=== PATIENT | male | born 1940 | race African-American/Black ===

== ENCOUNTER 2021-11-30 11:01 | Emergency (ER) | payer MEDICARE ==
[2021-11-30] MEDS ORDERED: TETANUS,DIPH,PERTUSS(ACELL) VACCINE 0.5 ML SYRINGE IM ONE (12:21)
[2021-11-30] MEDS ORDERED: SODIUM CHLORIDE 0.9% 250ML 250 ML IV ONE (12:22)
[2021-11-30] MEDS ORDERED: MORPHINE 4 MG/1 ML INJ IV ONE ×3 (12:22→19:10)
--- NOTE | 2021-11-30 12:22 | Emergency Department Report ---
ED General Adult HPI - General Chief complaint: Fall Stated complaint: LEFT HIP PAIN Time Seen by Provider: 11/30/21 12:14 Source: patient, family, EMS (Verbal report received from emergency medical services. EMS documentation not available at time of chart dictation ), RN notes reviewed Mode of arrival: Stretcher Limitations: Language Barrier, Physical Limitation - History of Present Illness Initial comments: The patient was evaluated in the emergency department for symptoms described in the history of present illness. He/she was evaluated in the context of the global COVID-19 pandemic, which necessitated consideration that the patient might be at risk for infection with the virus that causes COVID-19. Institutional protocols and algorithms that pertain to the evaluation of patients at risk for COVID-19 are in a state of rapid change based on information released by regulatory bodies including the CDC and federal and state organizations. These policies and algorithms were followed during the patient's care in the emergency department. Please note that these policies, procedures and recommendations changed on a rapid basis. This is an 81-year-old gentleman who is COVID-19 vaccinated with 2 boosters, who presents to the department today with a complaint of feeling dizzy, lightheaded, fall, and left hip pain. He is accompanied by his family member who agrees to translate. The patient describes no antecedent pain. After the fall, he has a mild headache, neck aching, and severe left-sided hip pain. Denies cough, loss of taste and smell, fever, chest pain, abdominal pain, new/different shortness of breath, and extremity weakness and numbness. Family denies travel, surgery, immobilization, leg pain, leg swelling, DVT and pulmonary embolism risk factors. -: Sudden Location: left, lower extremity Consistency: constant Improves with: rest Worsens with: movement - Related Data Allergies Allergy/AdvReac Type Severity Reaction Status Date / Time No Known Allergies Allergy Verified 11/30/21 11:05 ED Review of Systems ROS: Stated complaint: LEFT HIP PAIN Other details as noted in HPI Comment: per family Constitutional: denies: fever Eyes: denies: eye discharge ENT: denies: epistaxis Respiratory: denies: cough Cardiovascular: denies: chest pain Genitourinary: denies: dysuria Musculoskeletal: arthralgia, myalgia Neurological: weakness (Generalized weakness) ED Physical Exam - General Limitations: Physical Limitation General appearance: alert, in no apparent distress - Head Head exam: Present: normocephalic - Eye Eye exam: Present: normal appearance, EOMI. Absent: nystagmus - ENT ENT exam: Present: normal exam, normal orophraynx, mucous membranes moist, normal external ear exam - Neck Neck exam: Present: normal inspection, full ROM. Absent: tenderness, meningismus - Respiratory Respiratory exam: Present: normal lung sounds bilaterally. Absent: respiratory distress, rhonchi, stridor, decreased breath sounds - Cardiovascular Cardiovascular Exam: Present: regular rate, normal rhythm, normal heart sounds. Absent: bradycardia, systolic murmur, diastolic murmur, rubs, gallop - GI/Abdominal GI/Abdominal exam: Present: soft. Absent: distended, tenderness, guarding, rebound, rigid, pulsatile mass - Rectal Rectal exam: Present: deferred - Extremities Exam Extremities exam: Present: normal inspection, full ROM (Bilateral upper extremities. Right lower extremity.), other (2+ pulses noted in the bilateral upper and lower extremities. The left hip is tender. The left proximal femur is tender. 2+ femoral pulses noted bilaterally. 2+ dorsalis pedis pulses noted bilaterally). Absent: calf tenderness - Back Exam Back exam: Present: normal inspection, paraspinal tenderness. Absent: tenderness, CVA tenderness (R), CVA tenderness (L), vertebral tenderness - Neurological Exam Neurological exam: Present: alert (5/5 strength dorsal and plantar flexors in the foot.), other (There is no facial droop. The tongue is midline. EOMI. 5/5 strength in 4 extremities. Sensation is intact to light touch in 4 extremities) - Psychiatric Psychiatric exam: Present: normal affect, normal mood - Skin Skin exam: Present: warm, dry, intact, normal color. Absent: rash ED Course Vital Signs 11/30/21 11/30/21 11/30/21 11:03 14:35 14:45 Temperature 98.1 F Pulse Rate 68 71 71 Respiratory 18 15 16 Rate Blood Pressure 154/77 Blood Pressure 170/90 [Left] O2 Sat by Pulse 98 98 Oximetry 11/30/21 15:01 Temperature Pulse Rate 74 Respiratory 14 Rate Blood Pressure 162/83 Blood Pressure [Left] O2 Sat by Pulse 97 Oximetry - Reevaluation(s) Reevaluation #1: 11/30/21 14:52 Differential diagnosis, including but not limited to: Orthostasis, vagal event, closed head injury, cervical spine injury, pelvic bone fracture, pneumonia, UTI, dehydration, electrolyte derangement, thyroid derangement, acute coronary syndrome, structural cardiac disease Assessment and plan: 81-year-old gentleman who is clinically sober, with a GCS of 15, who is not currently tachycardic, tachypneic or hypoxic, who denies DVT and pulmonary embolism risk factors, who is neurologically intact, presenting to the department today with a complaint of lightheadedness, preceding fall. He is found to have a number of orthopedic injuries, including left iliac crest fracture, left pubic ramus fracture. He is also found to have suggestion of acetabulum fracture. Placed patient on life skills coordinator. Obtain appropriate laboratory studies, urinalysis. Because of advanced age, CT scan of the brain, and cervical spine are obtained, which showed no fracture or dislocation. CT scan of the pelvis demonstrates multiple orthopedic fractures. Patient continues to have pain after initial morphine dose. Order additional morphine for pain. Ordered long posterior extremity splints. Laboratory studies pending. Do not have orthopedics on-call for the emergency room or hospital today. Have reached out to [facility] to discuss with their orthopedic physician on-call, and ideally admit patient to medical service with orthopedics to follow in consultation. Discussed this with family member at the bedside, who is agreeable to the plan of care. Have also requested medications be reconciled. 11/30/21 15:45 Discussed the patient's history, physical, imaging studies with orthopedic surgeon on-call for [facility] Dr Rocio Massey. He advises transfer to a trauma center, for acetabular fracture. The patient's history, physical, imaging studies are presented to orthopedic traumatologist, Dr. Ardon, at [facility], who will accept the patient as an ER to ER transfer. I discussed this with the patient's granddaughter at the bedside. She is agreeable to the plan of care. She articulated understanding. Home medications include colchicine, Flomax, carvedilol, Carafate, lisinopril. 11/30/21 17:51 Family has requested that I discussed the patient's care with family friend/physician, Dr. Bernardino HORTA, at [facility] They have given consent for the details of the patient's care to be discussed with this orthopedist. I discussed the patient's history, physical, imaging studies, and management rationale with Dr Horta He is in agreement with the plan of care, and will convey to family. ED Medical Decision Making - Lab Data Result diagrams: 11/30/21 14:19 11/30/21 14:19 Vital Signs 11/30/21 11:03 Temperature 98.1 F Pulse Rate 68 Respiratory 18 Rate Blood Pressure 170/90 [Left] O2 Sat by Pulse 98 Oximetry Lab Results 11/30/21 Range/Units 14:19 WBC 9.7 (4.5-11.0) K/mm3 RBC 3.82 (3.65-5.03) M/mm3 Hgb 12.6 (11.8-15.2) gm/dl Hct 37.6 (35.5-45.6) % MCV 99 H (84-94) fl MCH 33 H (28-32) pg MCHC 33 (32-34) % RDW 14.7 (13.2-15.2) % Plt Count 98 L (140-440) K/mm3 Lymph % (Auto) 18.2 (13.4-35.0) % [place] % (Auto) 8.8 H (0.0-7.3) % Eos % (Auto) 2.7 (0.0-4.3) % Baso % (Auto) 0.3 (0.0-1.8) % Lymph # (Auto) 1.8 (1.2-5.4) K/mm3 [place] # (Auto) 0.9 H (0.0-0.8) K/mm3 Eos # (Auto) 0.3 (0.0-0.4) K/mm3 Baso # (Auto) 0.0 (0.0-0.1) K/mm3 Seg Neutrophils % 70.0 (40.0-70.0) % Seg Neutrophils # 6.8 (1.8-7.7) K/mm3 Lab Results 11/30/21 11/30/21 11/30/21 Range/Units 14:19 14:19 14:19 WBC 9.7 (4.5-11.0) K/mm3 RBC 3.82 (3.65-5.03) M/mm3 Hgb 12.6 (11.8-15.2) gm/dl Hct 37.6 (35.5-45.6) % MCV 99 H (84-94) fl MCH 33 H (28-32) pg MCHC 33 (32-34) % RDW 14.7 (13.2-15.2) % Plt Count 98 L (140-440) K/mm3 Lymph % (Auto) 18.2 (13.4-35.0) % [place] % (Auto) 8.8 H (0.0-7.3) % Eos % (Auto) 2.7 (0.0-4.3) % Baso % (Auto) 0.3 (0.0-1.8) % Lymph # (Auto) 1.8 (1.2-5.4) K/mm3 [place] # (Auto) 0.9 H (0.0-0.8) K/mm3 Eos # (Auto) 0.3 (0.0-0.4) K/mm3 Baso # (Auto) 0.0 (0.0-0.1) K/mm3 Seg Neutrophils % 70.0 (40.0-70.0) % Seg Neutrophils # 6.8 (1.8-7.7) K/mm3 PT 16.3 H (12.2-14.9) Sec. INR 1.17 H (0.87-1.13) Sodium 140 (137-145) mmol/L Potassium 4.2 (3.6-5.0) mmol/L Chloride 104.5 (98-107) mmol/L Carbon Dioxide 23 (22-30) mmol/L Anion Gap 17 mmol/L BUN 19 (9-20) mg/dL Creatinine 1.0 (0.8-1.3) mg/dL Estimated GFR > 60 ml/min BUN/Creatinine Ratio 19 % Glucose 126 H (75-100) mg/dL Calcium 9.4 (8.4-10.2) mg/dL Phosphorus 3.60 (2.5-4.5) mg/dL Magnesium 1.70 (1.7-2.3) mg/dL Total Bilirubin 0.70 (0.1-1.2) mg/dL AST 50 H (5-40) units/L ALT 26 (7-56) units/L Alkaline Phosphatase 144 H (35-129) units/L Total Creatine Kinase 111 (55-170) units/L Troponin T < 0.010 (0.00-0.029) ng/mL Total Protein 7.4 (6.3-8.2) g/dL Albumin 3.6 L (3.9-5) g/dL Albumin/Globulin Ratio 0.9 % TSH (0.270-4.200) mlU/mL Urine Bilirubin (Negative) 11/30/21 11/30/21 Range/Units 14:19 14:20 WBC (4.5-11.0) K/mm3 RBC (3.65-5.03) M/mm3 Hgb (11.8-15.2) gm/dl Hct (35.5-45.6) % MCV (84-94) fl MCH (28-32) pg MCHC (32-34) % RDW (13.2-15.2) % Plt Count (140-440) K/mm3 Lymph % (Auto) (13.4-35.0) % [place] % (Auto) (0.0-7.3) % Eos % (Auto) (0.0-4.3) % Baso % (Auto) (0.0-1.8) % Lymph # (Auto) (1.2-5.4) K/mm3 [place] # (Auto) (0.0-0.8) K/mm3 Eos # (Auto) (0.0-0.4) K/mm3 Baso # (Auto) (0.0-0.1) K/mm3 Seg Neutrophils % (40.0-70.0) % Seg Neutrophils # (1.8-7.7) K/mm3 PT (12.2-14.9) Sec. INR (0.87-1.13) Sodium (137-145) mmol/L Potassium (3.6-5.0) mmol/L Chloride (98-107) mmol/L Carbon Dioxide (22-30) mmol/L Anion Gap mmol/L BUN (9-20) mg/dL Creatinine (0.8-1.3) mg/dL Estimated GFR ml/min BUN/Creatinine Ratio % Glucose (75-100) mg/dL Calcium (8.4-10.2) mg/dL Phosphorus (2.5-4.5) mg/dL Magnesium (1.7-2.3) mg/dL Total Bilirubin (0.1-1.2) mg/dL AST (5-40) units/L ALT (7-56) units/L Alkaline Phosphatase (35-129) units/L Total Creatine Kinase (55-170) units/L Troponin T (0.00-0.029) ng/mL Total Protein (6.3-8.2) g/dL Albumin (3.9-5) g/dL Albumin/Globulin Ratio % TSH 3.120 (0.270-4.200) mlU/mL Urine Bilirubin Neg (Negative) - EKG Data -: EKG Interpreted by Hi EKG shows normal: sinus rhythm Rate: normal - EKG Data When compared to previous EKG there are: previous EKG unavailable 11/30/21 14:45 The EKG is interpreted at 12: 34 This is a sinus rhythm, with a rate of 67 bpm. Left axis deviation, left anterior fascicular block, right bundle branch block, QTC 4 5 8 ms, and left ventricular hypertrophy. Abnormal EKG. Not a STEMI peer - Radiology Data Radiology results: pending, report reviewed, image reviewed Addendum: Additional area of irregularity seen in the left superior pubic ramus extending towards the acetabulum centrally and anteriorly suggesting superior pubic rami fracture/acetabular fracture. Signer Name: Chang Mckeon MD Signed: 11/30/2021 1:03 PM Workstation Name: [id number] CT pelvis wo con INDICATION / CLINICAL INFORMATION: fall left hip pain. TECHNIQUE: Axial, coronal and sagittal images All CT scans at this location are performed using CT dose reduction for ALARA by means of automated exposure control. COMPARISON: None available. FINDINGS: There is a displaced fracture which is comminuted involving the left iliac bone which extends to the superior aspect of the SI joint on the left. This extends into the iliac crest superiorly as well. Discogenic degenerative changes seen at L4-5 and L5-S1. Mild irregularity within the L4 vertebral body superior endplate. No significant loss of vertebral body height at L4. Left hip arthroplasty is noted. There is a fracture with displacement involving the left inferior pubic ramus with greater than one shaft width displacement. 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 Visualized sacrum appears intact. 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 IMPRESSION: 1. Comminuted displaced fracture of the left iliac bone extending to the iliac crest posterior superiorly. 2. Advanced degenerative change in lower lumbar spine. Mild irregularity is endplate of L4 could represent subtle superior endplate and vertebral body fracture. No significant loss of vertebral body height 3. Left inferior pubic rami fracture with displacement 4. Left hip arthroplasty appears satisfactory in position. 5. Infrarenal abdominal aortic aneurysm. 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 Questionable mild irregularity within the sacrum and coccyx on sagittal images 36 and 37 which could represent subtle fracture of the coccyx. Signer Name: Chang Mckeon MD Signed: 11/30/2021 12:48 PM Workstation Name: [employer] CT HEAD WITHOUT CONTRAST INDICATION / CLINICAL INFORMATION: Weakness. TECHNIQUE: All CT scans at this location are performed using CT dose reduction for ALARA by means of automated exposure control. COMPARISON: None available. FINDINGS: There is no acute intracranial hemorrhage. Ventricles are normal in size without midline shift or mass effect there are scattered areas of low- attenuation in the periventricular and central white matter suggesting nonspecific white matter change. Visualized sella appears normal. ADDITIONAL FINDINGS: None. IMPRESSION: 1. No acute intracranial hemorrhage. Periventricular and central white matter areas of low-attenuation suggesting small vessel disease. Given patient's symptoms and concern for ischemic change MRI with diffusion is recommended for further evaluation for ischemia. Signer Name: Chang Mckeon MD Signed: 11/30/2021 12:37 PM Workstation Name: [employer] CT cervical spine wo con INDICATION / CLINICAL INFORMATION: Weakness. TECHNIQUE: Axial, coronal and sagittal images All CT scans at this location are performed using CT dose reduction for ALARA by means of automated exposure control. COMPARISON: None available. FINDINGS: Straightening of normal cervical spine curvature. Occipital horns appear normal. Odontoid appears intact. Discogenic degenerative changes seen throughout spine with endplate changes throughout. Anterior posterior disc osteophytes throughout. Facets are well aligned throughout. Extensive atherosclerotic change throughout the aorta and carotid vessels chronic changes in the lung apices with scarring and emphysematous change. IMPRESSION: 1. Advanced discogenic degenerative changes seen throughout cervical spine. No prevertebral soft tissue swelling 2. Atherosclerotic calcification throughout the aorta and carotid vessels. Signer Name: Chang Mckeon MD Signed: 11/30/2021 12:44 PM Workstation Name: [id number] Left femur 4 views INDICATION: Fall FINDINGS: Left femoral arthroplasty is satisfactory position. Displaced left inferior pubic rami fracture. There is abnormality within the iliopectineal line suggesting fracture deformity within the left iliac bone. This appears to extend into the region of the acetabulum. Impression: Multiple fractures and left hip with fracture through the left superior pubic ramus extending into the region of the acetabulum. Left inferior pubic ramus and iliac bone Portable chest INDICATION: Fall FINDINGS: Increased pulmonary vascularity. Hyperexpansion of the lungs. No large pneumothorax is seen Pelvis one view INDICATION: Injury FINDINGS: Fractures of the left iliac bone including the iliac crest. Fracture the left inferior pubic ramus. Fractures of the iliopectineal line extending towards acetabulum. Signer Name: Chang Mckeon MD Signed: 11/30/2021 12:55 PM Workstation Name: [id number] Critical Care Time: Yes Critical care time in (mins) excluding proc time.: 35 Critical care attestation.: If time is entered above; I have spent that time in minutes in the direct care of this critically ill patient, excluding procedure time. Critical Care Time: Critical care time multiple bedside reevaluations, interpretation of laboratory studies, radiology studies, multiple discussions with multiple consulting services, including general orthopedics, orthopedic traumatologist, and discussion with family member. This does not include procedure time. ED Disposition Clinical Impression: Fall, Closed head injury, Near syncope, Fracture of left superior pubic ramus, Fracture of left iliac crest, Acetabulum fracture, left Disposition: 02 SHORT TERM HOSPITAL Is pt being admited?: No Does the pt Need Aspirin: No Condition: Good
--- NOTE | 2021-11-30 13:41 | Cat Scan Report ---
CT HEAD WITHOUT CONTRAST INDICATION / CLINICAL INFORMATION: Weakness. TECHNIQUE: All CT scans at this location are performed using CT dose reduction for ALARA by means of automated e xposure control. COMPARISON: None available. FINDINGS: There is no acute intracranial hemorrhage. Ventricles are normal in size without midline shift or mas s effect there are scattered areas of low-attenuation in the periventricular and central white matter suggesting nonspecific white matter change. Visualized sella appears normal. ADDITIONAL FINDINGS: None. IMPRESSION: 1. No acute intracranial hemorrhage. Periventricular and central white matter areas of low-attenuatio n suggesting small vessel disease. Given patient's symptoms and concern for ischemic change MRI with diffusion is recommended for further evaluation for ischemia. Signer Name: Chang Mckeon MD Signed: 11/30/2021 1:37 PM Workstation Name: [id number]
--- NOTE | 2021-11-30 13:48 | Cat Scan Report ---
CT cervical spine wo con INDICATION / CLINICAL INFORMATION: Weakness. TECHNIQUE: Axial, coronal and sagittal images All CT scans at this location are performed using CT dose reductio n for ALARA by means of automated exposure control. COMPARISON: None available. FINDINGS: Straightening of normal cervical spine curvature. Occipital horns appear normal. Odontoid appears int act. Discogenic degenerative changes seen throughout spine with endplate changes throughout. Anterior posterior disc osteophytes throughout. Facets are well aligned throughout. Extensive atherosclerotic change throughout the aorta and carotid vessels chronic changes in the lung apices with scarring and emphysematous change. IMPRESSION: 1. Advanced discogenic degenerative changes seen throughout cervical spine. No prevertebral soft tiss ue swelling 2. Atherosclerotic calcification throughout the aorta and carotid vessels. Signer Name: Chang Mckeon MD Signed: 11/30/2021 1:44 PM Workstation Name: [id number]
--- NOTE | 2021-11-30 13:52 | Cat Scan Report ---
CT pelvis wo con INDICATION / CLINICAL INFORMATION: fall left hip pain. TECHNIQUE: Axial, coronal and sagittal images All CT scans at this location are performed using CT dose reductio n for ALARA by means of automated exposure control. COMPARISON: None available. FINDINGS: There is a displaced fracture which is comminuted involving the left iliac bone which extends to the superior aspect of the SI joint on the left. This extends into the iliac crest superiorly as well. Di scogenic degenerative changes seen at L4-5 and L5-S1. Mild irregularity within the L4 vertebral body superior endplate. No significant loss of vertebral body height at L4. Left hip arthroplasty is noted. There is a fracture with displacement involving the left inferior pub ic ramus with greater than one shaft width displacement. Osteopenia seen throughout the acetabulum an d pelvis. Visualized sacrum appears intact. Mild aneurysmal dilatation of the infrarenal abdominal ao rta with aneurysmal dilatation of the left common iliac artery measuring 3 cm. IMPRESSION: 1. Comminuted displaced fracture of the left iliac bone extending to the iliac crest posterior superi rafy. 2. Advanced degenerative change in lower lumbar spine. Mild irregularity is endplate of L4 could repr esent subtle superior endplate and vertebral body fracture. No significant loss of vertebral body hei ght 3. Left inferior pubic rami fracture with displacement 4. Left hip arthroplasty appears satisfactory in position. 5. Infrarenal abdominal aortic aneurysm. Marked aneurysmal dilatation left common iliac artery measur ing 3 cm 6. Questionable mild irregularity within the sacrum and coccyx on sagittal images 36 and 37 which cou ld represent subtle fracture of the coccyx. Signer Name: Chang Mckeon MD Signed: 11/30/2021 1:48 PM Workstation Name: [id number]
--- NOTE | 2021-11-30 14:00 | XRay Report ---
Left femur 4 views INDICATION: Fall FINDINGS: Left femoral arthroplasty is satisfactory position. Displaced left inferior pubic rami frac ture. There is abnormality within the iliopectineal line suggesting fracture deformity within the lef t iliac bone. This appears to extend into the region of the acetabulum. Impression: Multiple fractures and left hip with fracture through the left superior pubic ramus extending into th e region of the acetabulum. Left inferior pubic ramus and iliac bone Portable chest INDICATION: Fall FINDINGS: Increased pulmonary vascularity. Hyperexpansion of the lungs. No large pneumothorax is seen Pelvis one view INDICATION: Injury FINDINGS: Fractures of the left iliac bone including the iliac crest. Fracture the left inferior pubi c ramus. Fractures of the iliopectineal line extending towards acetabulum. Signer Name: Chang Mckeon MD Signed: 11/30/2021 1:55 PM Workstation Name: [id number]
[2021-11-30 14:45] LABS: Basophils % (Auto) 0.3 % (0.0-1.8); Eosinophils # (Auto) 0.3 K/mm3 (0.0-0.4); Eosinophils % (Auto) 2.7 % (0.0-4.3); Hematocrit 37.6 % (35.5-45.6); Hemoglobin 12.6 gm/dl (11.8-15.2); Lymphocytes # (Auto) 1.8 K/mm3 (1.2-5.4); Lymphocytes % (Auto) 18.2 % (13.4-35.0); Mean Corpuscular HGB Conc 33 % (32-34); Mean Corpuscular Volume 99 fl (84-94); Monocytes # (Auto) 0.9 K/mm3 (0.0-0.8); Monocytes % (Auto) 8.8 % (0.0-7.3); Red Blood Count 3.82 M/mm3 (3.65-5.03); Red Cell Distribution Width 14.7 % (13.2-15.2)
[2021-11-30 14:47] LABS: Platelet Count 98 K/mm3 (140-440)
[2021-11-30 14:55] LABS: INR 1.17 (0.87-1.13)
[2021-11-30 15:37] LABS: Alanine Aminotransferase 26 units/L (7-56); Albumin 3.6 g/dL (3.9-5); BUN/Creatinine Ratio 19; Blood Urea Nitrogen 19 mg/dL (9-20); Calcium 9.4 mg/dL (8.4-10.2); Hemolysis Index 19
[2021-11-30 16:02] LABS: Bilirubin,Urine NEG (Negative); Blood,Urine NEG (Negative); Color,Urine Yellow (Yellow); Protein,Urine <15 mg/dL mg/dL (Negative); Urobilinogen,Urine < 2.0 mg/dL (<2.0)
[2021-11-30 16:04] LABS: Mucus,Urine FEW /HPF; WBC,Urine < 1.0 /HPF (0.0-6.0)
[2021-12-01 00:08] VITALS: BP 112/66
--- NOTE | 2021-12-01 19:47 | Electrocardiograph Report ---
[facility] Test Date: 2021-11-30 Test Time: 12:34:39 Pat Name: SABRINA MORALES Department: Room: Gender: M Sec Reporting Consultant: HERMELINDA : 1940 Requested By: FELIZ RUIZ Order Number: [id number] Reading MD: Alejandro Santiago Measurements Intervals Loda Rate: 67 P: -16 VT: 167 QRS: -16 QRSD: 102 T: 117 QT: 433 QTc: 458 Interpretive Statements Sinus rhythm Nonspecific T abnormalities, lateral leads No previous ECG available for comparison Electronically Signed On 12-01-2021 19:46:40 EDT by Alejandro Santiago
== END 2021-12-01 00:13 | disposition short-term general hospital (02) ==
LOC: ED 11:01
DX: S32.502A Unspecified fracture of left pubis, initial encounter for closed fracture (principal); S32.302A Unspecified fracture of left ilium, initial encounter for closed fracture; S32.402A Unspecified fracture of left acetabulum, initial encounter for closed fracture; S09.90XA Unspecified injury of head, initial encounter; R55 Syncope and collapse; W19.XXXA Unspecified fall, initial encounter; Y93.89 Activity, other specified; Y92.89 Other specified places as the place of occurrence of the external cause; Y99.8 Other external cause status
CPT/HCPCS: 36415; 70450; 71045; 72125; 72170; 72192; 73552; 80053; 81001; 82550; 83735; 84100; 84443; 84484; 85025; 85610; 90471; 90715; 93005; 96374; 96376; 99285; J2270; J7050